=== PATIENT | female | born 1990 | race Two or more races ===

== ENCOUNTER 2019-06-05 07:43 | Outpatient (CLI) | payer OTHER | END 2019-06-05 07:48 | disposition home or self-care (01) | LOC: SONOGRAMA 07:43 | DX: E04.1 Nontoxic single thyroid nodule (principal) ==

== ENCOUNTER 2021-06-14 10:46 | Emergency (ER) | payer OTHER ==
[~2021-06-14] VITALS: Ht 152.4 cm; Wt 65.8 kg
[2021-06-14] MEDS ORDERED: SYNTHROID100 MCG (10:56)
== END 2021-06-14 12:47 | disposition home or self-care (01) ==
LOC: ER 10:46
DX: O26.851 Spotting complicating pregnancy, first trimester (principal); Z3A.01 Less than 8 weeks gestation of pregnancy

== ENCOUNTER 2021-06-18 19:13 | Emergency (ER) | payer OTHER ==
[~2021-06-18] VITALS: Ht 162.6 cm; Wt 61.2 kg
[~2021-06-18 19:13] MED LIST: SYNTHROID100 MCG
[2021-06-19] MEDS ORDERED: KETO10TA2 PO (04:27)
== END 2021-06-19 04:35 ==
LOC: ER 19:13
DX: O03.9 Complete or unspecified spontaneous abortion without complication (principal); Z3A.01 Less than 8 weeks gestation of pregnancy

== ENCOUNTER 2022-09-09 05:52 | Day surgery (SDC) | payer OTHER ==
[~2022-09-09 05:52] MED LIST changes: +KETO10TA2 PO
== END 2022-09-09 10:30 | disposition home or self-care (01) ==
LOC: CIR.AMB 05:52
PROVIDERS: ATTEND Obstetrics & Gynecology
DX: Z30.2 Encounter for sterilization (principal); Z64.1 Problems related to multiparity; Z20.822 Contact with and (suspected) exposure to COVID-19; E03.9 Hypothyroidism, unspecified